=== PATIENT | female | born 2005 | race Caucasian/White ===

== ENCOUNTER 2024-04-25 20:03 | Emergency (ER) | payer MEDICAID, OTHER ==
[~2024-04-25] VITALS: Ht 152.4 cm; Wt 68.0 kg
[2024-04-25 20:15] VITALS: BP 108/64; PULSE 54; RESP 16; TEMP 97.1; O2SAT 100
[2024-04-25] MEDS: LIDOCAINE MPF 1% 10 MG/ML VIAL INJ ONE (21:43)
[2024-04-25] MEDS ORDERED: BACI-418 TP (22:56)
[2024-04-25] MEDS: BACITRACIN OINT 500 UNITS/GM PKT TP ONE (23:19)
== END 2024-04-25 23:20 | disposition home or self-care (01) ==
LOC: MED 20:03
DX: L60.0 Ingrowing nail (principal); Z79.899 Other long term (current) drug therapy
CPT/HCPCS: 11750; 99285; J2001

== ENCOUNTER 2024-04-27 19:04 | Emergency (ER) | payer OTHER ==
[~2024-04-27] VITALS: Ht 149.9 cm; Wt 70.8 kg
[~2024-04-27 19:04] MED LIST: BACI-418 TP
[2024-04-27 19:16] VITALS: BP 110/47; PULSE 70; RESP 14; TEMP 99.2; O2SAT 99
[2024-04-27 20:03] VITALS: BP 110/47; PULSE 70; RESP 14; TEMP 99.2
[2024-04-27 20:05] VITALS: O2SAT 99
== END 2024-04-27 20:03 | disposition home or self-care (01) ==
LOC: MED 19:04
DX: Z48.00 Encounter for change or removal of nonsurgical wound dressing (principal); Z79.899 Other long term (current) drug therapy
CPT/HCPCS: 99281